=== PATIENT | female | born 1965 | race Two or more races ===

== ENCOUNTER 2019-11-24 18:47 | Emergency (ER) | payer BC ==
[~2019-11-24] VITALS: Ht 157.5 cm; Wt 58.1 kg
[2019-11-24 18:57] VITALS: Ht 157.5 cm; Wt 58.1 kg
[2019-11-24 22:03] VITALS: BP 154/91
== END 2019-11-24 22:03 | disposition home or self-care (01) ==
LOC: ED 18:47
DX: R51 Headache (principal); R11.2 Nausea with vomiting, unspecified
CPT/HCPCS: J1200; J1885; J2765; J7030